=== PATIENT | female | born 1955 | race Caucasian/White ===

== ENCOUNTER 2017-11-23 11:58 | Emergency (ER) | payer MEDICAID, MEDICARE ==
[~2017-11-23] VITALS: Ht 172.7 cm; Wt 116.5 kg
[~2017-11-23 11:58] MED LIST: ALBUAER3 INH; ASPI-183 PO; CINN500C PO; CO Q10CA PO; D3400TAB PO; DOXY100C PO; FISH120014 PO; FURO40TA PO; GLYB5TAB3 PO; METF1000 PO; METO50TA PO; NOVO7030P2 SQ; RED1CAP4 PO; TRAZ300T2 PO
[2017-11-23 12:07] VITALS: BP 147/80; PULSE 75; RESP 18; TEMP 98.6; O2SAT 96
[2017-11-23 13:00] LABS: AUTOMATED NEUTROPHIL # 3.8 TH/MM3 (1.8-7.7); BASOPHIL % 0.6 % (0.0-2.0); EOSINOPHIL # 0.1 TH/MM3 (0-0.4); EOSINOPHIL % 2.3 % (0.0-4.0); HEMATOCRIT 36.9 % (35.0-46.0); HEMOGLOBIN 12.3 GM/DL (11.6-15.3); LYMPH % 27.5 % (9.0-44.0); LYMPHOCYTE # 1.8 TH/MM3 (1.0-4.8); MEAN CELL VOLUME 83.8 FL (80.0-100.0); MEAN CORPUSCULAR HEMOGLOBIN 27.8 PG (27.0-34.0); MEAN CORPUSCULAR HGB CONC 33.2 % (32.0-36.0); MONO % 10.8 % (0.0-8.0); MONOCYTE # 0.7 TH/MM3 (0-0.9); NEUT % 58.8 % (16.0-70.0); PLATELET COUNT 273 TH/MM3 (150-450); RED BLOOD COUNT 4.41 MIL/MM3 (4.00-5.30); RED CELL DISTRIBUTION WIDTH 14.1 % (11.6-17.2); WHITE BLOOD COUNT 6.4 TH/MM3 (4.0-11.0)
[2017-11-23 13:08] LABS: BACTERIA, URINE OCC /hpf; BILIRUBIN, URINE NEG (NEG); BLOOD, URINE TRACE (NEG); GLUCOSE,URINE NEG (NEG); HYALINE CAST, URINE 9 /lpf (RARE); KETONE, URINE NEG (NEG); MUCUS URINE FEW /lpf (OCC); NITRITE,URINE NEG (NEG); SQUAMOUS EPITHELIAL CELL URINE 1 /hpf (0-5); URINE COLOR YELLOW (YELLW/STRAW); URINE LEUKOCYTE ESTERASE LARGE (NEG); WHITE BLOOD CELL CLUMPS OCC
[2017-11-23 13:17] LABS: BICARBONATE 29.8 MEQ/L (21.0-32.0); BLOOD UREA NITROGEN 20 MG/DL (7-18); CALCIUM 8.9 MG/DL (8.5-10.1); CHLORIDE 101 MEQ/L (98-107); CREATININE 1.25 MG/DL (0.50-1.00); GLOMERULAR FILTRATION RATE 43 ML/MIN (>89); GLUCOSE,RANDOM 169 MG/DL (74-106); SODIUM (NA) 137 MEQ/L (136-145)
[2017-11-23 13:21] LABS: TROPONIN I LESS THAN 0.02 NG/ML (0.02-0.05)
--- NOTE | 2017-11-23 13:39 | RADRPT ---
EXAM DATE/TIME: 11/23/2017 12:46 [facility] COMPARISON: CHEST SINGLE AP, December 26, 2015, 20:14. CHEST SINGLE AP, January 09, 2015, 12:23. CHEST SINGLE AP, 2015, 0:09. INDICATIONS : Short of breath. MEDICAL HISTORY : Congestive heart failure. Hypertension Diabetes SURGICAL HISTORY : CABG, triple bypass ENCOUNTER: Initial ACUITY: 3 weeks PAIN SCORE: 0/10 LOCATION: Bilateral chest FINDINGS: The heart is mildly enlarged. The patient is post median sternotomy. The lungs demonstrate COPD penn es with a 1.7 x 2.1 cm nodular appearing area in the left upper lobe. This is compared back to a prev ious dated 12/26/15 and is stable. The right lung is clear. Visualized bony structures are intact. CONCLUSION: 1. Cardiomegaly. 2. There is a nodular appearing area probably representing scarring in the left upper lobe it is stab le compared back to previous dated 12/26/15. Continued followup of this document stability would be wa rranted. Kvng Hernadez MD on November 23, 2017 at 13:35 Board Certified Radiologist. This report was verified electronically.
[2017-11-23 20:44] VITALS: BP 233/94; PULSE 70; RESP 18; O2SAT 96
[2017-11-23] MEDS ORDERED: CIPR-9 PO (20:44)
[2017-11-23] MEDS ORDERED: NOVO7030P2 SQ (20:44)
[2017-11-23] MEDS ORDERED: GABA400C5 PO (20:44)
[2017-11-23] MEDS ORDERED: GLYB5TAB3 PO (20:44)
[2017-11-23] MEDS ORDERED: LISI2.5T3 PO (20:44)
[2017-11-23] MEDS ORDERED: LABETALOL HCL 100 MG/20 ML VIAL IV PUSH ONE (21:00)
[2017-11-23 21:30] VITALS: BP 187/77; PULSE 78; RESP 18; O2SAT 96
--- NOTE | 2017-11-23 22:38 | RADRPT ---
EXAM DATE/TIME: 11/23/2017 21:48 [facility] COMPARISON: No previous studies available for comparison. INDICATIONS : Left leg swelling. MEDICAL HISTORY : Myocardial infarction. Congestive heart failure. Hypercholesterolemia. Hearing loss. Migraines. Co ronary artery disease. Anticoagulant therapy. Hypertension. . Interstitial cystitis. Rheumat oid arthritis. Diabetes. Anxiety. Measles. Celulitis. MRSA. SURGICAL HISTORY : CABG 3rd ventricle cystectomy. Bladder surgery. ENCOUNTER: Initial ACUITY: 1 day PAIN SCORE: 4/10 LOCATION: Left leg. TECHNIQUE: Venous ultrasound of the leg was performed from the inguinal ligament to the proximal calf. Real-cedric e, color Doppler and spectral tracing, compression and augmentation techniques were used. FINDINGS: There is normal compressibility of the deep venous system from the inguinal region to the proximal ca lf. No echogenic clot is seen in the lumen of the common femoral, femoral, popliteal, and posterior tibial veins. There is a normal response of the venous system to proximal and distal augmentation an d respiration. CONCLUSION: 1. Negative for deep venous thrombosis. Pardeep Mcarthur MD on November 23, 2017 at 22:36 Board Certified Radiologist. This report was verified electronically.
[2017-11-24] VITALS: BP 149/67; PULSE 76; RESP 18; O2SAT 96
[2017-11-24] MEDS ORDERED: NITROFURANTOIN MONOHYD MACROCR 100 MG CAP PO ONE (01:00)
[2017-11-24] MEDS ORDERED: CLON0.1T PO (01:16)
--- NOTE | 2017-11-24 01:16 | PD ---
HPI Chief Complaint: Edema Time Seen by Provider: 20:27 Travel History International Travel<30 days: No Contact w/Intl Traveler<30days: No Traveled to known affect area: No History of Present Illness HPI pt comes to ER complaining of leg swelling L> R and has HTn and is currently taking Cipro for UTI , was o Keflex and then started Cipro few days ago. pt also has Hx of DM and CABG with veins harvested from left leg. < now she has swelling to Left leg and painful area on posterior calf . PFSH Past Medical History Hx Anticoagulant Therapy: Yes Arthritis: Yes (RHEUMATOID) Asthma: No Autoimmune Disease: No Blood Disorders: No Anxiety: Yes Depression: No Heart Rhythm Problems: No Cancer: No Cardiovascular Problems: Yes (CHF) High Cholesterol: Yes (TAKES FISH OIL) Chemotherapy: No Chest Pain: Yes Congestive Heart Failure: Yes COPD: No Cerebrovascular Accident: No Coronary Artery Disease: Yes Diabetes: Yes Patient Takes Glucophage: Yes Diminished Hearing: Yes Gastrointestinal Disorders: No GERD: No Genitourinary: Yes (INTERSTITIAL CYSTITIS) Headaches: Yes Hiatal Hernia: No Hypertension: Yes Immune Disorder: No Implanted Vascular Access Dvce: No Kidney Stones: No Musculoskeletal: No Neurologic: No Psychiatric: No Reproductive: No Respiratory: Yes Integumentary: Yes (CELLULITIS) Migraines: Yes Myocardial Infarction: Yes Radiation Therapy: No Renal Failure: No Seizures: No Sickle Cell Disease: No Sleep Apnea: No Thyroid Disease: No Ulcer: No Influenza Vaccination: No Menopausal: Yes : 1 Para: 1 Past Surgical History Abdominal Surgery: No Arteriovenous Shunt: No Cardiac Surgery: Yes (CABG X3) Coronary Artery Bypass Graft: Yes (November 2014) Ear Surgery: No Endocrine Surgery: No Eye Surgery: No Genitourinary Surgery: Yes (BLADDER SURGERY) Gynecologic Surgery: No Insulin Pump: No Joint Replacement: No Neurologic Surgery: Yes (COLLOID CYSTECTOMY 3RD VENTRICLE) Oral Surgery: No Thoracic Surgery: No Other Surgery: Yes (BRAIN SURGERY 30+YEARS ) Family History Family Hypercholesterolemia: Yes Social History Alcohol Use: No Tobacco Use: Yes (rarely) Substance Use: No Allergies-Medications (Allergen,Severity, Reaction): Coded Allergies: Sulfa (Sulfonamide Antibiotics) (Unverified Allergy, Severe, 11/23/17) ampicillin (Unverified Allergy, Severe, RASH, 11/23/17) codeine (Unverified Allergy, Severe, RASH, 11/23/17) diclofenac (Unverified Allergy, Severe, RASH, 11/23/17) erythromycin base (Unverified Allergy, Severe, 11/23/17) etodolac (Unverified Allergy, Severe, RASH, 11/23/17) flurbiprofen (Unverified Allergy, Severe, RASH, 11/23/17) hydrocodone (Unverified Allergy, Severe, 11/23/17) ibuprofen (Unverified Allergy, Severe, RASH, 11/23/17) indomethacin (Unverified Allergy, Severe, RASH, 11/23/17) ketoprofen (Unverified Allergy, Severe, RASH, 11/23/17) ketorolac (Unverified Allergy, Severe, RASH, 11/23/17) naproxen (Unverified Allergy, Severe, RASH, 11/23/17) oxaprozin (Unverified Allergy, Severe, RASH, 11/23/17) oxycodone (Unverified Allergy, Severe, 11/23/17) penicillin G (Unverified Allergy, Severe, RASH, 11/23/17) acetaminophen (Unverified Allergy, Unknown, 11/23/17) inflammed liver morphine (Unverified Allergy, Unknown, 11/23/17) insulin aspart (Unverified Adverse Reaction, Severe, Blurred Vision, ) PT STATES SHE BESCOMES "BLIND" insulin aspart protamine human (Unverified Adverse Reaction, Severe, Blurred Vision, 11/23/17) PT STATES SHE BESCOMES "BLIND" insulin detemir (Unverified Adverse Reaction, Severe, Blurred Vision, ) PT STATES SHE BESCOMES "BLIND" insulin glargine (Unverified Adverse Reaction, Severe, Blurred Vision, 11/23) PT STATES SHE BESCOMES "BLIND" insulin isophane (NPH) (Unverified Adverse Reaction, Severe, Blurred Vision, 11/23/17) PT STATES SHE BESCOMES "BLIND" insulin lispro (Unverified Adverse Reaction, Severe, Blurred Vision, ) PT STATES SHE BESCOMES "BLIND" insulin regular (Unverified Adverse Reaction, Severe, Blurred Vision, ) PT STATES SHE BESCOMES "BLIND" *MDRO Multi-Drug Resistant Organism (Verified Adverse Reaction, Unknown, ) MRSA urine 08/2015 & 05/24/16 Reported Meds & Prescriptions Reported Meds & Active Scripts Active Clonidine (Clonidine HCl) 0.1 Mg Tab 0.1 Mg PO BID Reported Lisinopril 2.5 Mg Tab 2.5 Mg PO DAILY Cipro (Ciprofloxacin HCl) 500 Mg Tab 500 Mg PO BID Gabapentin 400 Mg Cap 400 Cap PO HS Novolin 70-30 Inj (Insulin Human Isoph/Insulin Regular) 1,000 Unit/10 Ml Vial 42 Units SQ BID Glyburide 5 Mg Tab 10 Mg PO BID Take with meals at the same time each day Trazodone (Trazodone HCl) 300 Mg Tab 300 Mg PO HS Co Q 10 (Coenzyme Q10 (Ubidecarenone)) 10 Mg Cap 1 Cap PO BID Red Yeast Rice (Red Yeast Rice Extract) 300 Mg Cap 1 Cap PO BID Metoprolol Tartrate 50 Mg Tab 50 Mg PO BID Furosemide 40 Mg Tab 40 Mg PO DAILY D3 (Cholecalciferol) 400 Unit Tab 400 Units PO BID Aspirin 325 Mg Tab 325 Mg PO ONCE Metformin (Metformin HCl) 1,000 Mg Tab 1,000 Mg PO BIDPC With meals Review of Systems Except as stated in HPI: all other systems reviewed are Neg Physical Exam Narrative GENERAL: truncal obesity nonseptic appearing SKIN: Warm and dry. HEAD: Atraumatic. Normocephalic. EYES: Pupils equal and round. No scleral icterus. No injection or drainage. ENT: No nasal bleeding or discharge. Mucous membranes pink and moist. NECK: Trachea midline. No JVD. CARDIOVASCULAR: Regular rate and rhythm. hypertension on monitor 228 SBP RESPIRATORY: No accessory muscle use. Clear to auscultation. Breath sounds equal bilaterally. GASTROINTESTINAL: Abdomen obese soft, non-tender. Hepatic and splenic margins not palpable. MUSCULOSKELETAL: Extremities Left leg swelling posterior calf area . without clubbing, cyanosis NEUROLOGICAL: Awake and alert. No obvious cranial nerve deficits. Motor grossly within normal limits. Five out of 5 muscle strength in the arms and legs. Normal speech. PSYCHIATRIC: Appropriate mood and affect; insight and judgment normal. Data Data Last Documented VS Vital Signs Date Time Temp Pulse Resp B/P (MAP) Pulse Ox O2 Delivery O2 Flow Rate FiO2 11/24/17 01:51 11/24/17 00:00 76 18 96 Room Air 11/23/17 12:07 98.6 Orders Orders Complete Blood Count With Diff (11/23/17 12:17) Basic Metabolic Panel (Bmp) (11/23/17 12:17) Ckmb (Isoenzyme) Profile (11/23/17 12:17) Troponin I (11/23/17 12:17) B-Type Natriuretic Peptide (11/23/17 12:17) Urinalysis - C+S If Indicated (11/23/17 12:17) Chest, Pa & Lat (11/23/17 ) Urine Culture (11/23/17 12:21) Labetalol Inj (Trandate Inj) (11/23/17 21:00) Us Leg Venous Doppler (11/23/17 ) Nitrofurantoin Monohyd Macrocr (Macrobid (11/24/17 01:00) Ed Discharge Order (11/24/17 01:45) Electrocardiogram (11/23/17 20:42) Labs Laboratory Tests Test 11/23/17 12:21 11/23/17 12:24 Urine Color YELLOW Urine Turbidity CLEAR Urine pH 5.0 Urine Specific [place] 1.008 Urine Protein TRACE mg/dL Urine Glucose (UA) NEG mg/dL Urine Ketones NEG mg/dL Urine Occult Blood TRACE Urine Nitrite NEG Urine Bilirubin NEG Urine Urobilinogen LESS THAN 2.0 MG/DL Urine Leukocyte Esterase LARGE Urine RBC 8 /hpf Urine WBC 40 /hpf Urine WBC Clumps OCC Urine Squamous Epithelial Cells 1 /hpf Urine Bacteria OCC /hpf Urine Hyaline Casts 9 /lpf Urine Mucus FEW /lpf Microscopic Urinalysis Comment CULTURE INDICATED White Blood Count 6.4 TH/MM3 Red Blood Count 4.41 MIL/MM3 Hemoglobin 12.3 GM/DL Hematocrit 36.9 % Mean Corpuscular Volume 83.8 FL Mean Corpuscular Hemoglobin 27.8 PG Mean Corpuscular Hemoglobin Concent 33.2 % Red Cell Distribution Width 14.1 % Platelet Count 273 TH/MM3 Mean Platelet Volume 8.0 FL Neutrophils (%) (Auto) 58.8 % Lymphocytes (%) (Auto) 27.5 % Monocytes (%) (Auto) 10.8 % Eosinophils (%) (Auto) 2.3 % Basophils (%) (Auto) 0.6 % Neutrophils # (Auto) 3.8 TH/MM3 Lymphocytes # (Auto) 1.8 TH/MM3 Monocytes # (Auto) 0.7 TH/MM3 Eosinophils # (Auto) 0.1 TH/MM3 Basophils # (Auto) 0.0 TH/MM3 CBC Comment DIFF FINAL Differential Comment Blood Urea Nitrogen 20 MG/DL Creatinine 1.25 MG/DL Random Glucose 169 MG/DL Calcium Level 8.9 MG/DL Sodium Level 137 MEQ/L Potassium Level 4.8 MEQ/L Chloride Level 101 MEQ/L Carbon Dioxide Level 29.8 MEQ/L Anion Gap 6 MEQ/L Estimat Glomerular Filtration Rate 43 ML/MIN Total Creatine Kinase 54 U/L Troponin I LESS THAN 0.02 NG/ML B-Type Natriuretic Peptide 95 PG/ML MDM Medical Decision Making Medical Screen Exam Complete: Yes Emergency Medical Condition: Yes Differential Diagnosis DVT vs edema of PVD or fluid overload or HTN induced right sided failure to leg edema Narrative Course DVT US negative NO CLOT, PO clonidine reduced BP and sent home URINE still has WBC but pt has somany allergies that deceion to remain on Cipro and follow up with her PCP pt agrees with plan for d/c clonidine Rx given Diagnosis Primary Impression: Edema Qualified Codes: R60.9 - Edema, unspecified Additional Impression: Hypertension Qualified Codes: I10 - Essential (primary) hypertension Patient Instructions: Chronic Hypertension (ED), Edema (ED), General Instructions Scripts Clonidine (Clonidine) 0.1 Mg Tab 0.1 MG PO BID for Blood Pressure Management, #60 TAB 0 Refills Prov: Celio Cast MD 11/24/17 Disposition: DISCHARGE HOME Condition: Good Celio Cast MD Nov 24, 2017 01:16
--- NOTE | 2017-11-25 00:08 | EKG ---
Date Performed: 11/23/2017 Time Performed: 20:42:09 PTAGE: 62 years EKG: Sinus rhythm ST DEVIATION AND MODERATE T-WAVE ABNORMALITY, CONSIDER LATERAL ISCHEMIA ABNORMAL ECG PREVIOUS TRACING : 08/22/2016 23.20 Since the prior tracing, there has been no significant lizarraga DOCTOR: Shine Godfrey Interpretating Date/Time 11/25/2017 00:07:02
== END 2017-11-24 01:53 | disposition home or self-care (01) ==
LOC: NEPC 11:58
DX: R60.9 Edema, unspecified (principal); I11.0 Hypertensive heart disease with heart failure; I50.9 Heart failure, unspecified; I25.2 Old myocardial infarction; I25.10 Atherosclerotic heart disease of native coronary artery without angina pectoris; E11.9 Type 2 diabetes mellitus without complications; R94.31 Abnormal electrocardiogram [ECG] [EKG]; Z72.0 Tobacco use; Z79.4 Long term (current) use of insulin
CPT/HCPCS: 71046; 80048; 81001; 82550; 83880; 84484; 85025; 87086; 93005; 93971; 96374